=== PATIENT | female | born 2000 | race Caucasian/White ===

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

== ENCOUNTER 2023-12-12 13:38 | Outpatient (CLI) | payer SELFPAY ==
--- NOTE | 2023-12-12 13:46 | XRR_ITS ---
PROCEDURE INFORMATION: Exam: XR Sacrum and Coccyx, 2 or More Views Exam date and time: 12/12/2023 2:14 PM Age: 23 years old Clinical indication: Pain in coccyx area; Additional info: M53.3 - sacrococcygeal disorders, not elsewhere classified TECHNIQUE: Imaging protocol: XR of the sacrum and coccyx, 2 or more views. COMPARISON: CR XR lumbar spine 6V w f/e [id number] 12/12/2023 2:14 PM FINDINGS: Bones/joints: Sacrum and coccyx are grossly intact. No evidence of displaced fracture. Soft tissues: No gross soft tissue abnormality. XR/XR sacrum coccyx min 2V [id number] IMPRESSION: 1. Sacrum and coccyx are grossly intact. If there is ongoing clinical concern, consider correlation with CT.
--- NOTE | 2023-12-12 13:46 | XRR_ITS ---
PROCEDURE INFORMATION: Exam: XR Lumbosacral Spine Exam date and time: 12/12/2023 2:14 PM Age: 23 years old Clinical indication: Low back pain; Additional info: S32.009a - unspecified fracture of unspecified lumbar alexi. . . TECHNIQUE: Imaging protocol: Radiologic exam of the lumbosacral spine. Views: 6 or more views. Including flexion and extension views. COMPARISON: CR XR sacrum coccyx min 2V [id number] 12/12/2023 2:14 PM FINDINGS: Bones/joints: Chronic appearing L1 vertebral body compression fracture with mild height loss. The sacrum and coccyx are partially obscured by bowel gas/stool. Soft tissues: Grossly unremarkable. XR/XR lumbar spine 6V w f/e [id number] IMPRESSION: 1. Chronic appearing L1 vertebral body compression fracture with mild height loss. Consider correlation with CT or MRI for further detail, particularly if there is concern for recent trauma.
== END 2023-12-12 13:39 | disposition home or self-care (01) ==
LOC: RAD 13:41
PROVIDERS: Family Provider Nurse Practitioner Family; PCP Nurse Practitioner Family; Visit Provider Nurse Practitioner Family
DX: M53.3 Sacrococcygeal disorders, not elsewhere classified (principal); G89.29 Other chronic pain; S32.009A Unspecified fracture of unspecified lumbar vertebra, initial encounter for closed fracture; N92.6 Irregular menstruation, unspecified; R53.83 Other fatigue; R10.2 Pelvic and perineal pain; Z13.6 Encounter for screening for cardiovascular disorders; Z79.899 Other long term (current) drug therapy; S32.010A Wedge compression fracture of first lumbar vertebra, initial encounter for closed fracture
CPT/HCPCS: 72114; 72220; 80053; 80061; 81003; 82728; 83036; 83550; 84439; 84443; 85025; 87086

== ENCOUNTER 2023-12-13 14:29 | Emergency (ER) | payer SELFPAY ==
[2023-12-13 14:53] VITALS: BP 146/104; PULSE 88; RESP 16; TEMP 37.1; O2SAT 98
--- NOTE | 2023-12-13 15:04 | CTR_ITS ---
PROCEDURE INFORMATION: Exam: CT Abdomen And Pelvis With Contrast Exam date and time: 12/13/2023 4:00 PM Age: 23 years old Clinical indication: Abdominal pain; Localized; Right lower quadrant (rlq); Additional info: Rlq pain TECHNIQUE: Imaging protocol: Computed tomography of the abdomen and pelvis with contrast. Axial, coronal and sagittal reformatted images were created and reviewed. Radiation optimization: All CT scans at this facility use at least one of these dose optimization techniques: automated exposure control; mA and/or kV adjustment per patient size (includes targeted exams where dose is matched to clinical indication); or iterative reconstruction. Contrast material: OMNI 350; Contrast volume: 100 ml; Contrast route: INTRAVENOUS (IV); COMPARISON: CT abdomen pelvis w con* [id number] 11/11/2017 11:53 PM RADIATION DOSE METRICS: Total DLP (mGy-cm): 790.18 FINDINGS: Liver: Unremarkable. Gallbladder and biliary ducts: No radiodense gallstones. No biliary ductal dilatation. Pancreas: Unremarkable. Spleen: Unremarkable. Adrenal glands: Normal. No mass. Kidneys and ureters: No mass. No radiodense calculi. No hydronephrosis. Stomach and bowel: Moderate amount of retained stool in the colon. No obstruction. No bowel wall thickening. No pneumatosis. Appendix: Normal. Intraperitoneal space: Trace nonspecific free pelvic fluid, likely physiologic. No organized fluid collection. No free air. Vasculature: Unremarkable. No aneurysm. Lymph nodes: Small mesenteric lymph nodes, nonspecific in appearance. No pathologically enlarged lymph nodes. Urinary bladder: Unremarkable as visualized. Reproductive: 4.6 x 4 cm left adnexal cystic lesion, likely a follicular cyst. Bones/joints: No acute osseous abnormality. Chronic partial L1 superior endplate compression deformity. Soft tissues: Unremarkable. CT/CT abdomen pelvis w con* [id number] IMPRESSION: 1. 4.6 x 4 cm left adnexal cystic lesion, likely a follicular cyst. 2. Additional findings, as above.
--- NOTE | 2023-12-13 15:05 | W.ED.ABDPA2 ---
HPI - Abdominal Pain General: Chief Complaint: Abdominal Pain Stated Complaint: abd pain Time Seen by Provider: 12/13/23 14:53 Source: patient Mode of arrival: ambulatory Limitations: no limitations History of Present Illness: 23-year-old female states she has been having lower abdominal pain she states over the last 4 days states it is a cramping pain at first but today her pain is worsened and is in her right lower quadrant she states her pain is a 8 out of 10. She had some nausea denies any vomiting denies any fevers denies any worsening improving factors. Associated Symptoms: Denies chills, diarrhea, fever(s), nausea and vomiting Review of Systems Const: Denies: fever(s), chills, body aches or change in appetite ENMT: Denies: throat pain or dental pain Card: Denies: chest pain Resp: Denies: dyspnea GI: Reports: abdominal pain; Denies: nausea, vomiting or diarrhea Musc: Denies: neck pain or back pain Skin/Breast: Denies: rash Neuro: Denies: headache(s) PFSH ED PFSH: Medical History Fracture of lumbar spine Ovarian cyst Coccygeal pain, chronic Medication management Encounter for screening for cardiovascular disorders Pelvic pain Fatigue Menstrual irregularity Social History Smoking and tobacco/nicotine status: never used tobacco/nicotine Alcohol intake: current Alcohol intake frequency: holidays/special occasions only Substance/Drug Use: never Physical Exam Const: COMMON NORMALS: no acute distress, patient oriented x3 and healthy appearing HENMT: COMMON NORMALS: normocephalic and atraumatic HEAD & SCALP: normocephalic and atraumatic Neck/C-Spine: COMMON NORMALS: full ROM and supple Chest: COMMONS NORMALS: normal inspection of the chest Resp: COMMON NORMALS: normal respiratory effort Cardio: COMMON NORMALS: regular rate, regular rhythm and No murmurs present (Cardio) RATE: regular rate RHYTHM: regular rhythm GI: COMMON NORMALS: Normal to inspection, nondistended, normoactive bowel sounds present, Soft to palpation and no masses PALPATION: Yes Soft to palpation and Yes Tenderness to palpation present (GI) Details: RLQ Extremity: COMMON NORMALS: normal to inspection and full ROM Neuro: COMMON NORMALS: patient oriented x3, moves all extremities and no focal motor deficits Psych: COMMON NORMALS: mental status grossly normal, Normal thought process present and cooperative THOUGHT PROCESS: Normal thought process present Skin: COMMON NORMALS: no rashes or lesions noted and no wounds GENERAL SKIN EXAM: no rashes or lesions noted Course Vital Signs: Vital signs: Vital Signs Temperature 98.8 F 12/13/23 14:53 Pulse Rate 78 12/13/23 15:21 Respiratory Rate 16 12/13/23 15:21 Blood Pressure 134/84 12/13/23 15:21 Pulse Oximetry 100 12/13/23 15:21 Oxygen Delivery Me thod Room Air 12/13/23 15:21 MDM - Abdominal Pain Medical Decision Making Patient presents here with abdominal pain CT showed no signs appendicitis she is feeling improved here blood works normal no signs of acute surgical abdomen she stable for discharge she is follow-up with PCP return if worsening she understands agrees to plan Medical Records I reviewed the patient's medical records. Lab Data I reviewed the patient's lab results. 12/13/23 15:06 12/13/23 15:06 Labs/Radiology: Radiology Impressions Abdomen/Pelvis CT 12/13/23 15:04 IMPRESSION: 1. 4.6 x 4 cm left adnexal cystic lesion, likely a follicular cyst. 2. Additional findings, as above. Laboratory Results WBC 6.25 10^3/uL (3.29-11.43) 12/13/23 15:06 RBC 4.73 10^6/uL (3.85-5.65) 12/13/23 15:06 Hgb 14.80 g/dL (11.27-16.99) 12/13/23 15:06 Hct 43.7 % (36-47) 12/13/23 15:06 MCV 92.4 fl (85-98) 12/13/23 15:06 MCH 31.3 pg (27-33) 12/13/23 15:06 MCHC 33.9 g/dL (30-55) 12/13/23 15:06 RDW 11.9 % (12.1-15.1) L 12/13/23 15:06 Plt Count 215 10^3/cmm (157-399) 12/13/23 15:06 MPV 10.3 fL (7.4-10.4) 12/13/23 15:06 Neut % (Auto) 64.3 % 12/13/23 15:06 Lymph % (Auto) 25.3 % 12/13/23 15:06 [place] % (Auto) 7.8 % 12/13/23 15:06 Eos % (Auto) 1.9 % 12/13/23 15:06 Baso % (Auto) 0.5 % 12/13/23 15:06 Neut # (Auto) 4.02 10^3/uL (1.8-7.7) 12/13/23 15:06 Lymph # (Auto) 1.6 10^3/uL (0.8-4.8) 12/13/23 15:06 [place] # (Auto) 0.5 10^3/uL (0.2-0.9) 12/13/23 15:06 Eos # (Auto) 0.1 10^3/uL (0.0-0.8) 12/13/23 15:06 Baso # (Auto) 0.0 10^3/uL (0.0-0.1) 12/13/23 15:06 Nucleated RBC % (auto) 0 % 12/13/23 15:06 Nucleated RBCs # 0.0 /100WBC 12/13/23 15:06 Sodium 137 mmol/L (136-145) 12/13/23 15:06 Potassium 3.9 mmol/L (3.5-5.1) 12/13/23 15:06 Chloride 100 mmol/L (98-107) 12/13/23 15:06 Carbon Dioxide 23 mmol/L (22-29) 12/13/23 15:06 Anion Gap 17.9 (5-19) 12/13/23 15:06 BUN 11 mg/dL (6-20) 12/13/23 15:06 Creatinine 0.6 mg/dL (0.5-0.9) 12/13/23 15:06 GFR Calculation 123.9 mL/min (90-130) 12/13/23 15:06 Glucose 90 mg/dL (65-115) 12/13/23 15:06 Calculated Osmolality 283 mOsm/kg (285-295) L 12/13/23 15:06 Calcium 9.5 mg/dL (8.5-10.5) 12/13/23 15:06 Total Bilirubin 0.4 mg/dL (0.15-1.2) 12/13/23 15:06 AST 21 U/L (0-32) 12/13/23 15:06 ALT 27 U/L (0-33) 12/13/23 15:06 Alkaline Phosphatase 59 U/L (35-105) 12/13/23 15:06 Total Protein 7.8 g/dL (6.6-8.7) 12/13/23 15:06 Albumin 4.4 g/dL (3.5-5.2) 12/13/23 15:06 Globulin 3.4 g/dL (1.3-4.6) 12/13/23 15:06 Lipase 15 U/L (13-60) 12/13/23 15:06 HCG, Qual Negative (Negative) 12/13/23 15:06 Urine Color Yellow (Yellow) 12/13/23 15:22 Urine Appearance Slightly cloudy (CLEAR) 12/13/23 15:22 Urine pH 6.5 (5-7) 12/13/23 15:22 Ur Specific [place] 1.015 (1.005-1.030) 12/13/23 15:22 Urine Protein Neg (Negative) 12/13/23 15:22 Urine Glucose (UA) Norm (Normal) 12/13/23 15:22 Urine Ketones Negative (Negative) 12/13/23 15:22 Urine Blood Neg (Negative) 12/13/23 15:22 Urine Nitrate Negative (Negative) 12/13/23 15:22 Urine Bilirubin Neg (Negative) 12/13/23 15:22 Urine Urobilinogen Norm mg/dL (Negative) 12/13/23 15:22 Ur Leukocyte Esterase 2+ (Negative) H 12/13/23 15:22 Urine RBC 0-4 /hpf (0-2) H 12/13/23 15:22 Urine WBC 15-25 /hpf (0-5) H 12/13/23 15:22 Ur Squamous Epith Cells 10-15 /hpf (0-5) H 12/13/23 15:22 Amorphous Sediment Not Reportable 12/13/23 15:22 Urine Bacteria 2+ /hpf (NONE) H 12/13/23 15:22 Urine Mucus Trace /hpf 12/13/23 15:22 All radiology interpretation(s) finalized by discharge Discharge Plan Discharge Patient Disposition: Home Clinical Impression: Abdominal pain Condition: Stable Discharge Orders: Discharge ED (Routine); Ordered 12/13/23 Ordered By: Dary Bernardo Referrals: MILENA Yi, [employer] [Primary Care Provider] - 4-7 days Discharge Diet: Advance as tolerated Discharge Activity: Resume usual activity Patient Instructions: Abdominal Pain (ED) Coding Level of Care Code ED Hospice Case Manager for Zaina Rocha
[2023-12-13] MEDS: sodium chloride 0.9% 1,000 ML 999 ML IV (15:15)
[2023-12-13 15:17] VITALS: RESP 16
[2023-12-13] MEDS: ondansetron 2 mg/ML SDV 2 mL 4 MG IVP (15:17)
[2023-12-13] MEDS: morphine 4 mg/mL SDV 1 mL IVP (15:17)
[2023-12-13 15:21] VITALS: BP 134/84; PULSE 78; RESP 16; O2SAT 100
[2023-12-13 15:21] LABS: Basophils % 0.5 %; Eosinophils # 0.1 10^3/uL (0.0-0.8); Eosinophils % 1.9 %; Hematocrit 43.7 % (36-47); Lymphocytes # 1.6 10^3/uL (0.8-4.8); Lymphocytes % 25.3 %; Mean Corpuscular HGB Conc 33.9 g/dL (30-55); Mean Corpuscular Hemoglobin 31.3 pg (27-33); Mean Corpuscular Volume 92.4 fl (85-98); Mean Platelet Volume 10.3 fL (7.4-10.4); Monocytes # 0.5 10^3/uL (0.2-0.9); Monocytes % 7.8 %; Neutrophils # 4.02 10^3/uL (1.8-7.7); Neutrophils % 64.3 %; Nucleated Red Blood Cells % 0 %; Platelet Count 215 10^3/cmm (157-399); Red Blood Count 4.73 10^6/uL (3.85-5.65); Red Cell Distribution Width 11.9 % (12.1-15.1); White Blood Count 6.25 10^3/uL (3.29-11.43)
[2023-12-13 15:36] LABS: Alanine Aminotransferase 27 U/L (0-33); Albumin Level 4.4 g/dL (3.5-5.2); Alkaline Phosphatase 59 U/L (35-105); Anion Gap 17.9 (5-19); Aspartate Amino Transferase 21 U/L (0-32); Blood Urea Nitrogen 11 mg/dL (6-20); Calcium 9.5 mg/dL (8.5-10.5); Carbon Dioxide 23 mmol/L (22-29); Chloride 100 mmol/L (98-107); Creatinine Clr Calc Pharmacy 152.8261; Globulin 3.4 g/dL (1.3-4.6); Glomerular Filtration Rate 123.9 mL/min (90-130); Glucose 90 mg/dL (65-115); Lipase 15 U/L (13-60); Osmolality Calculated 283 mOsm/kg (285-295); Potassium 3.9 mmol/L (3.5-5.1); Sodium 137 mmol/L (136-145); Total Bilirubin 0.4 mg/dL (0.15-1.2); Total Protein 7.8 g/dL (6.6-8.7)
[2023-12-13 15:42] LABS: HCG, Serum Qual Negative (Negative)
[2023-12-13 15:48] LABS: Add Urine Microscopic? YES; Bilirubin Urine Neg (Negative); Blood Urine Neg (Negative); Glucose Urine UA Norm (Normal); Ketones Urine Negative (Negative); Leukocyte Esterase Urine 2+ (Negative); Nitrate Urine Negative (Negative); Protein Urine Neg (Negative); Specific Gravity, Urine 1.015 (1.005-1.030); Urine Appearance Slightly Cloudy (CLEAR); Urine Color Yellow (Yellow); Urobilinogen Urine Norm (Negative); pH Urine 6.5 (5-7)
[2023-12-13 15:57] LABS: Add Urine Culture? Yes; Bacteria Urine 2+ /hpf; Mucus Urine TRACE /hpf; RBC Urine 0-4 /hpf (0-2); WBC Urine 15-25 /hpf (0-5)
[2023-12-13] MEDS: iohexol 350 mg/mL 500 mL Btl (per mL) IV (16:02)
[2023-12-13 17:13] VITALS: BP 124/94; PULSE 81; RESP 16; O2SAT 95
== END 2023-12-13 17:19 | disposition home or self-care (01) ==
PROVIDERS: Emergency Provider Emergency Medicine; PCP Nurse Practitioner Family
DX: R10.30 Lower abdominal pain, unspecified (principal)
CPT/HCPCS: 74177; 80053; 81001; 83690; 84703; 85025; 87086; 96361; 96374; 96375; 99285; J2270; J2405; J7030; Q9967

== ENCOUNTER 2023-12-21 06:30 | Outpatient (CLI) | payer SELFPAY ==
--- NOTE | 2023-12-21 06:30 | US_ITS ---
WS: [id number] US transvaginal [id number] HISTORY: R10.2 - Pelvic and perineal pain COMPARISON: None available. Uterus: 6.3 cm x 4.9 cm x 3.2 cm. Normal size anteverted uterus. No fibroid or mass. Endometrium: 0.5 cm. Right ovary: 2.7 cm x 2.8 cm x 1.9 cm. Normal size and vascularity, no cystic or solid masses. Small peripheral follicles. Left ovary: 2.5 cm x 2.1 cm x 2.4 cm. Normal size and vascularity, no cystic or solid masses. Small p eripheral follicles. Previously described cyst within the LEFT adnexa is not present today. No free fluid in the cul-de-sac. US/US transvaginal [id number] IMPRESSION: Normal transvaginal pelvic ultrasound. Interval resolution of the LEFT ovarian cyst since 12/13/2023.
== END 2023-12-21 06:31 | disposition home or self-care (01) ==
PROVIDERS: PCP Nurse Practitioner Family; Visit Provider Nurse Practitioner Family
DX: R10.2 Pelvic and perineal pain (principal); N83.209 Unspecified ovarian cyst, unspecified side
CPT/HCPCS: 76830

== ENCOUNTER → 2023-12-22 11:41 | Outpatient (BNVA) | payer SELFPAY | PROVIDERS: PCP Nurse Practitioner Family; Visit Provider Nurse Practitioner Family | DX: R11.0 Nausea (principal); R53.83 Other fatigue | CPT/HCPCS: 86003; 86008; 86038; 86160; 86618; 86666; 86668; 86757 ==

== ENCOUNTER 2024-09-18 07:59 | Outpatient (CLI) | payer BC, MEDICAID, SELFPAY ==
[2024-09-18 08:42] LABS: Basophils # 0.1 10^3/uL (0.0-0.1); Basophils % 0.9 %; Eosinophils # 0.3 10^3/uL (0.0-0.8); Eosinophils % 5.6 %; Hematocrit 38.4 % (36-47); Mean Corpuscular HGB Conc 33.3 g/dL (30-55); Mean Platelet Volume 10.3 fL (7.4-10.4); Monocytes # 0.5 10^3/uL (0.2-0.9); Monocytes % 8.4 %; Neutrophils # 2.88 10^3/uL (1.8-7.7); Neutrophils % 50.1 %; Nucleated Red Blood Cells % 0 %; Platelet Count 214 10^3/cmm (157-399); Red Blood Count 4.13 10^6/uL (3.85-5.65); Red Cell Distribution Width 12.5 % (12.1-15.1); White Blood Count 5.74 10^3/uL (3.29-11.43)
[2024-09-18 08:48] LABS: Bilirubin Urine Negative (Negative); Blood Urine Negative (Negative); Glucose Urine UA Negative (Normal); Ketones Urine Negative (Negative); Leukocyte Esterase Urine 1+ (Negative); Nitrate Urine Negative (Negative); Protein Urine Negative (Negative); Specific Gravity, Urine 1.017 (1.005-1.030); Urine Appearance Clear (CLEAR); Urine Color Yellow (Yellow); Urobilinogen Urine 0.2 mg/dL (Negative)
[2024-09-18 08:53] LABS: Bacteria Urine Trace /hpf; Hyaline Casts Urine 0-4 /lpf; RBC Urine 0-2 /hpf (0-2)
[2024-09-18 09:09] LABS: Alanine Aminotransferase 9 U/L (0-33); Albumin Level 4.4 g/dL (3.5-5.2); Alkaline Phosphatase 66 U/L (35-105); Anion Gap 14.9 (5-19); Aspartate Amino Transferase 14 U/L (0-32); Blood Urea Nitrogen 10 mg/dL (6-20); Calcium 8.8 mg/dL (8.5-10.5); Carbon Dioxide 25 mmol/L (22-29); Chloride 105 mmol/L (98-107); Chol HDL Ratio 2.59 mg/dL (0.0-4.40); Cholesterol 184 mg/dL (0-200); Cortisol Random 19.83 ug/dL (2.47-19.5); Free T4 Free Thyroxine 1.11 ng/dL (0.82-1.77); Globulin 2.7 g/dL (1.3-4.6); Glomerular Filtration Rate 152.9 mL/min (90-130); Glucose 68 mg/dL (65-115); HDL Cholesterol 71 mg/dL (60-100); LDL Cholesterol Calculated 102 mg/dL (50-129); LDL HDL Ratio 1.44 RATIO (0.00-3.22); Osmolality Calculated 289 mOsm/kg (285-295); Potassium 3.9 mmol/L (3.5-5.1); Sodium 141 mmol/L (136-145); Thyroid Stimulating Hormone 10.72 uIU/mL (0.27-4.20); Total Bilirubin 0.2 mg/dL (0.15-1.2); Total Protein 7.1 g/dL (6.6-8.7); Triglycerides 53 mg/dL (0-150)
[2024-09-18 09:11] LABS: Estmated Average Glucose 91; Hemoglobin A1C 4.8 % (4.0-6.0)
[2024-09-18 09:48] LABS: 25 Hydroxy Vitamin D 32 ng/mL (30-100); Follicle Stimulating Hormone 6.6 mIU/mL; Luteinizing Hormone 12.1 mIU/mL (0.5-41.7); Prolactin 80.81 ng/mL (4.8-23.3)
[2024-09-19 07:25] LABS: Dehydroepiandrosterone Sulfate 287 mcg/dL (14-349)
== END 2024-09-18 08:00 | disposition home or self-care (01) ==
PROVIDERS: PCP Nurse Practitioner Family; Visit Provider Nurse Practitioner Family
DX: E28.2 Polycystic ovarian syndrome (principal); N92.6 Irregular menstruation, unspecified; E03.9 Hypothyroidism, unspecified
CPT/HCPCS: 36415; 80053; 80061; 81001; 82040; 82306; 82533; 82627; 82672; 83001; 83002; 83036; 84144; 84146; 84270; 84403; 84439; 84443; 85025

== ENCOUNTER 2024-10-19 14:46 | Emergency (ER) | payer BC, MEDICAID, SELFPAY ==
[2024-10-19 14:50] VITALS: BP 127/89; PULSE 70; RESP 16; TEMP 36.8; O2SAT 100; BMI 34.3
--- NOTE | 2024-10-19 15:18 | ED_ITS ---
HPI - Allergic Reaction 2 General: Chief complaint: Allergic Reaction Stated complaint: some kind of reaction Time Seen by Provider: 10/19/24 15:02 Source: patient Mode of arrival: ambulatory Limitations: no limitations History of Present Illness: HPI narrative: 23-year-old female who states she has a history of hypothyroidism states that over this last week she has been feeling lethargic she had some nausea and general malaise. And she is also had some numbness in her fingers states yesterday when she was working she felt like her ankles were swollen. She denies any fevers or chest pain Associated symptoms: Deny abdominal pain, nausea or vomiting Related Data Home Medications ?Medication ?Instructions ?Recorded ?Confirmed cholecalciferol (vitamin D3) 125 125 mcg PO DAILY 09/2810/19/24 mcg (5,000 unit) tablet (Vitamin D3) Previous Rx's ?Medication ?Instructions ?Recorded magnesium oxide 400 mg (241.3 mg See Rx Instructions P O .COMPLEX 04/02/24 magnesium) tablet #60 tabs sumatriptan succinate 50 mg tablet See Rx Instructions PO .COMPLEX 04/02/24 #10 tabs citalopram 10 mg tablet 10 mg PO DAILY #90 tabs 07/28 09/21 citalopram 20 mg tablet See Rx Instructions .Route 0 10/15/24 .COMPLEX #30 tabs levothyroxine 50 mcg tablet See Rx Instructions PO ION LY #45 10/19/24 (Levoxyl) tabs Allergies Allergy/AdvReac Type Severity Reaction Status Date / Time ethinyl estradiol (From Allergy ADR-Dizzine Verified 10/01/24 10:22 [place] (28)) ss levonorgestrel (From [place] Allergy ADR-Dizzine Verified 10/01/24 10:22 (28)) ss Review of Systems 2 Const: Reports: malaise; Denies: fever(s), chills, body aches or change in appetite ENMT: Denies: throat pain or dental pain Card: Denies: chest pain Resp: Denies: dyspnea GI: Denies: abdominal pain, nausea, vomiting or diarrhea Musc: Denies: neck pain or back pain Skin/Breast: Denies: rash Neuro: Denies: headache(s) PFSH ED 2 PFSH: Medical History Psychiatric care Elevated prolactin level PCOS (polycystic ovarian syndrome) Migraine Anxiety and depression Joint pain Positive RADHA (antinuclear antibody) Allergy to alpha-gal Oral contraceptive use Rectal pressure Hypothyroid Nausea Fracture of lumbar spine Ovarian cyst Coccygeal pain, chronic Medication management Encounter for screening for cardiovascular disorders Pelvic pain Fatigue Menstrual irregularity Social History Smoking and tobacco/nicotine status: never used tobacco/nicotine Alcohol intake: current Alcohol intake frequency: holidays/special occasions only Substance/Drug Use: never Female Reproductive History: Date of last menstrual period: 10/19/24 Physical Exam 2 Const: COMMON NORMALS: no acute distress, patient oriented x3 and healthy appearing HENMT: COMMON NORMALS: normocephalic and atraumatic HEAD & SCALP: n ormocephalic and atraumatic Eye: COMMON NORMALS: conjunctivae normal CONJUNCTIVA: Yes conjunctivae normal Neck/C-Spine: COMMON NORMALS: full ROM and supple Chest: COMMONS NORMALS: normal inspection of the chest Resp: COMMON NORMALS: normal respiratory effort, No retractions, No use of accessory muscles and clear to auscultation bilaterally AUSCULTATION: clear to auscultation bilaterally Cardio: COMMON NORMALS: regular rate, regular rhythm and No murmurs present (Cardio) RATE: regular rate RHYTHM: regular rhythm Extremity: COMMON NORMALS: normal to inspection and full ROM Neuro: COMMON NORMALS: patient oriented x3, moves all extremities and no focal motor deficits Psych: COMMON NORMALS: mental status grossly normal, Normal thought process present and cooperative THOUGHT PROCESS: Normal thought process present Skin: COMMON NORMALS: no rashes or lesions noted and no wounds GENERAL SKIN EXAM: no rashes or lesions noted Course 2 Vital Signs: Vital signs: Vital Signs Temperature 98.3 F 10/19/24 14:50 Pulse Rate 70 10/19/24 14:50 Respiratory Rate 16 10/19/24 14:50 Blood Pressure 127/89 10/19/24 14:50 Pulse Oximetry 100 10/19/24 14:50 Oxygen Delivery Me thod Room Air 10/19/24 14:50 MDM - Allergic Reaction Medical Decision Making Patient presents here with generalized weakness she has been well-appearing here vitals are normal blood works normal she is to follow back up with her private tutor return if worsening. Medical Records I reviewed the patient's medical records. Lab Data I reviewed the patient's lab results. 10/19/24 15:20 10/19/24 15:20 Laboratory Results WBC 6.52 10^3/uL (3.29-11.43) 10/19/24 15:20 RBC 4.25 10^6/uL (3.85-5.65) 10/19/24 15:20 Hgb 13.20 g/dL (11.27-16.99) 10/19/24 15:20 Hct 39.3 % (36-47) 10/19/24 15:20 MCV 92.5 fl (85-98) 10/19/24 15:20 MCH 31.1 pg (27-33) 10/19/24 15:20 MCHC 33.6 g/dL (30-55) 10/19/24 15:20 RDW 12.4 % (12.1-15.1) 10/19/24 15:20 Plt Count 229 10^3/cmm (157-399) 10/19/24 15:20 MPV 10.3 fL (7.4-10.4) 10/19/24 15:20 Neut % (Auto) 63.4 % 10/19/24 15:20 Lymph % (Auto) 25.5 % 10/19/24 15:20 [place] % (Auto) 6.4 % 10/19/24 15:20 Eos % (Auto) 3.7 % 10/19/24 15:20 Baso % (Auto) 0.8 % 10/19/24 15:20 Neut # (Auto) 4.14 10^3/uL (1.8-7.7) 10/19/24 15:20 Lymph # (Auto) 1.7 10^3/uL (0.8-4.8) 10/19/24 15:20 [place] # (Auto) 0.4 10^3/uL (0.2-0.9) 10/19/24 15:20 Eos # (Auto) 0.2 10^3/uL (0.0-0.8) 10/19/24 15:20 Baso # (Auto) 0.1 10^3/uL (0.0-0.1) 10/19/24 15:20 Nucleated RBC % (auto) 0 % 10/19/24 15:20 Nucleated RBCs # 0.0 /100WBC 10/19/24 15:20 Sodium 138 mmol/L (136-145) 10/19/24 15:20 Potassium 3.8 mmol/L (3.5-5.1) 10/19/24 15:20 Chloride 103 mmol/L (98-107) 10/19/24 15:20 Carbon Dioxide 22 mmol/L (22-29) 10/19/24 15:20 Anion Gap 16.8 (5-19) 10/19/24 15:20 BUN 9 mg/dL (6-20) 10/19/24 15:20 Creatinine 0.5 mg/dL (0.5-0.9) 10/19/24 15:20 GFR Calculation 152.9 mL/min (90-130) H 10/19/24 15:20 Glucose 82 mg/dL (65-115) 10/19/24 15:20 Calculated Osmolality 284 mOsm/kg (285-295) L 10/19/24 15:20 Calcium 9.1 mg/dL (8.5-10.5) 10/19/24 15:20 Total Bilirubin 0.3 mg/dL (0.15-1.2) 10/19/24 15:20 AST 13 U/L (0-32) 10/19/24 15:20 ALT 8 U/L (0-33) 10/19/24 15:20 Alkaline Phosphatase 57 U/L (35-105) 10/19/24 15:20 Total Protein 7.4 g/dL (6.6-8.7) 10/19/24 15:20 Albumin 4.3 g/dL (3.5-5.2) 10/19/24 15:20 Globulin 3.1 g/dL (1.3-4.6) 10/19/24 15:20 TSH 2.59 uIU/mL (0.27-4.20) 10/19/24 15:20 HCG, Qual Negative (Negative) 10/19/24 15:20 Urine Color Yellow (Yellow) 10/19/24 16:02 Urine Appearance Clear (CLEAR) 10/19/24 16:02 Urine pH 6.5 (5-7) 10/19/24 16:02 Ur Specific [place] 1.002 (1.005-1.030) L 10/19/24 16:02 Urine Protein Negative (Negative) 10/19/24 16:02 Urine Glucose (UA) Negative (Normal) 10/19/24 16:02 Urine Ketones Negative (Negative) 10/19/24 16:02 Urine Blood Negative (Negative) 10/19/24 16:02 Urine Nitrate Negative (Negative) 10/19/24 16:02 Urine Bilirubin Negative (Negative) 10/19/24 16:02 Urine Urobilinogen 0.2 mg/dL (Negative) 10/19/24 16:02 Ur Leukocyte Esterase 1+ (Negative) A 10/19/24 16:02 Urine RBC 0-2 /hpf (0-2) 10/19/24 16:02 Urine WBC 6-10 /hpf (0-5) 10/19/24 16:02 Ur Squamous Epith Cells 0-5 /hpf (0-5) 10/19/24 16:02 Amorphous Sediment Not Reportable 10/19/24 16:02 Urine Bacteria None seen /hpf (NONE) 10/19/24 16:02 Hyaline Casts 0.81 /lpf 10/19/24 16:02 No radiology studies performed this visit Discharge Plan Discharge Patient Disposition: Home Clinical Impression: Fatigue Condition: Stable Prescriptions: No Action levothyroxine [Levoxyl] 50 mcg tablet See Rx Instructions PO DAILY Qty: 45 3RF Rx Instructions: take 1 tablet bu mouth Tuesday through Tuesday; Take 1 1/2 on Tuesday orally daily; magnesium oxide 400 mg (241.3 mg magnesium) tablet See Rx Instructions PO .COMPLEX Qty: 60 1RF Rx Instructions: 1 tab daily - can take Q4hrs with headache orally; sumatriptan succinate 50 mg tablet See Rx Instructions PO .COMPLEX Qty: 10 2RF Rx Instructions: take 1 tab at onset of headache; if no relief may repeat 1 tab after at least 2 hrs; max = 4 tabs/24 hr PO citalopram 10 mg tablet 10 mg PO DAILY Qty: 90 0RF Rx Instructions: take with 20 mg to equal 30 mg citalopram 20 mg tablet See Rx Instructions .ROUTE .COMPLEX Qty: 30 0RF Dose Instruction: TAKE 1 TABLET BY MOUTH DAILY. TAKE WITH 10MG TO EQUAL 30MG DAILY Rx Instructions: TAKE 1 TABLET BY MOUTH DAILY. TAKE WITH 10MG TO EQUAL 30MG DAILY cholecalciferol (vitamin D3) [Vitamin D3] 125 mcg (5,000 unit) Tablet 125 mcg PO DAILY Discharge Orders: Discharge ED (Routine); Ordered 10/19/24 Ordered By: Dary Bernardo Referrals: MILENA Yi, CVT TECH [Primary Care Provider, [facility]] Discharge Diet: Advance as tolerated Discharge Activity: Resume usual activity Patient Instructions: Weakness (ED) Print Language: Indonesian Coding Level of Care Code ED Holter Scanning Technician for Zaina Rocha
[2024-10-19 15:35] LABS: Basophils # 0.1 10^3/uL (0.0-0.1); Basophils % 0.8 %; Eosinophils # 0.2 10^3/uL (0.0-0.8); Eosinophils % 3.7 %; Hematocrit 39.3 % (36-47); Lymphocytes # 1.7 10^3/uL (0.8-4.8); Lymphocytes % 25.5 %; Mean Corpuscular HGB Conc 33.6 g/dL (30-55); Mean Corpuscular Hemoglobin 31.1 pg (27-33); Mean Corpuscular Volume 92.5 fl (85-98); Mean Platelet Volume 10.3 fL (7.4-10.4); Monocytes # 0.4 10^3/uL (0.2-0.9); Monocytes % 6.4 %; Neutrophils # 4.14 10^3/uL (1.8-7.7); Neutrophils % 63.4 %; Nucleated Red Blood Cells % 0 %; Platelet Count 229 10^3/cmm (157-399); Red Blood Count 4.25 10^6/uL (3.85-5.65); Red Cell Distribution Width 12.4 % (12.1-15.1); White Blood Count 6.52 10^3/uL (3.29-11.43)
[2024-10-19] MEDS: sodium chloride 0.9% 1,000 ML 999 ML IV (15:37)
[2024-10-19 15:52] LABS: HCG, Serum Qual Negative (Negative)
[2024-10-19 16:03] LABS: Alanine Aminotransferase 8 U/L (0-33); Albumin Level 4.3 g/dL (3.5-5.2); Alkaline Phosphatase 57 U/L (35-105); Anion Gap 16.8 (5-19); Aspartate Amino Transferase 13 U/L (0-32); Blood Urea Nitrogen 9 mg/dL (6-20); Calcium 9.1 mg/dL (8.5-10.5); Carbon Dioxide 22 mmol/L (22-29); Chloride 103 mmol/L (98-107); Creatinine Clr Calc Pharmacy 190.9086; Globulin 3.1 g/dL (1.3-4.6); Glomerular Filtration Rate 152.9 mL/min (90-130); Glucose 82 mg/dL (65-115); Osmolality Calculated 284 mOsm/kg (285-295); Potassium 3.8 mmol/L (3.5-5.1); Sodium 138 mmol/L (136-145); Thyroid Stimulating Hormone 2.59 uIU/mL (0.27-4.20); Total Bilirubin 0.3 mg/dL (0.15-1.2); Total Protein 7.4 g/dL (6.6-8.7)
[2024-10-19 16:14] LABS: Bilirubin Urine Negative (Negative); Blood Urine Negative (Negative); Glucose Urine UA Negative (Normal); Ketones Urine Negative (Negative); Leukocyte Esterase Urine 1+ (Negative); Nitrate Urine Negative (Negative); Protein Urine Negative (Negative); Specific Gravity, Urine 1.002 (1.005-1.030); Urine Appearance Clear (CLEAR); Urine Color Yellow (Yellow); Urobilinogen Urine 0.2 mg/dL (Negative); pH Urine 6.5 (5-7)
[2024-10-19 16:17] LABS: Add Urine Microscopic? YES; Bacteria Urine None Seen /hpf; Hyaline Casts Urine 0.81 /lpf; RBC Urine 0-2 /hpf (0-2); Squamous Epithelial Cell Urine 0-5 /hpf (0-5)
[2024-10-19 16:50] VITALS: BP 121/78; PULSE 75; O2SAT 100
[2024-10-19 17:11] VITALS: BP 121/78; PULSE 75; O2SAT 100
== END 2024-10-19 17:13 | disposition home or self-care (01) ==
PROVIDERS: Emergency Provider Emergency Medicine; PCP Nurse Practitioner Family
DX: E03.9 Hypothyroidism, unspecified (principal); R53.83 Other fatigue; Z79.890 Hormone replacement therapy
CPT/HCPCS: 36415; 80053; 81001; 84443; 84703; 85025; 96360; 96361; 99284; J7030

== ENCOUNTER 2024-11-27 11:11 | Outpatient (CLI) | payer BC, MEDICAID, SELFPAY ==
[2024-11-27 12:18] LABS: Thyroid Stimulating Hormone 8.93 uIU/mL (0.27-4.20)
[2024-11-27 13:32] LABS: Free T4 Free Thyroxine 0.97 ng/dL (0.82-1.77)
== END 2024-11-27 11:12 | disposition home or self-care (01) ==
PROVIDERS: Absent Provider Nurse Practitioner Women's Health; PCP Nurse Practitioner Family; Visit Provider Internal Medicine
DX: R79.89 Other specified abnormal findings of blood chemistry (principal); E03.9 Hypothyroidism, unspecified; E28.2 Polycystic ovarian syndrome
CPT/HCPCS: 36415; 84146; 84439; 84443

== ENCOUNTER 2025-01-30 13:39 | Outpatient (CLI) | payer BC, MEDICAID, SELFPAY ==
[2025-01-30 14:48] LABS: Free T4 Free Thyroxine 0.85 ng/dL (0.82-1.77); Thyroid Stimulating Hormone 8.29 uIU/mL (0.27-4.20)
== END 2025-01-30 13:40 | disposition home or self-care (01) ==
PROVIDERS: PCP Nurse Practitioner Family; Visit Provider Internal Medicine
DX: R79.89 Other specified abnormal findings of blood chemistry (principal); E03.9 Hypothyroidism, unspecified
CPT/HCPCS: 36415; 84439; 84443; 84480

== ENCOUNTER 2025-02-22 13:21 | Outpatient (CLI) | payer BC, MEDICAID, SELFPAY ==
--- NOTE | 2025-02-22 13:45 | MR_ITS ---
WS: [id number] MRI BRAIN WITHOUT CONTRAST HISTORY: G43.909 - Migraine, unspecified, not intractable, without... COMPARISON: None available. TECHNIQUE: Diffusion imaging, multiplanar T1, T2 and FLAIR imaging obtained. No evidence for acute infarct or hemorrhage. Bean-white matter differentiation is normal. No remote or acute infarcts are volume loss. Ventricles and extra-axial spaces are normal. No inferior displacement of cerebellar tonsils. The sella turcica and pituitary gland are unremarkable. Dural venous sinuses and hoh of Early demonstrate no abnormality on this unenhanced studies. Paranasal sinuses: Clear. Mastoid air cells: Normal. Calvarium and scalp: Intact. MR/MR head wo con* [id number] IMPRESSION: 1. Unremarkable noncontrast MRI brain.
== END 2025-02-22 13:22 | disposition home or self-care (01) ==
LOC: RAD 13:21
PROVIDERS: PCP Nurse Practitioner Family; Visit Provider Nurse Practitioner Family
DX: G43.909 Migraine, unspecified, not intractable, without status migrainosus (principal)
CPT/HCPCS: 70551

== ENCOUNTER 2025-04-01 12:48 | Outpatient (CLI) | payer BC, MEDICAID, SELFPAY ==
[2025-04-01 14:33] LABS: Free T4 Free Thyroxine 0.97 ng/dL (0.82-1.77); Thyroid Stimulating Hormone 7.50 uIU/mL (0.27-4.20)
== END 2025-04-01 12:49 | disposition home or self-care (01) ==
LOC: LAB 12:50
PROVIDERS: PCP Nurse Practitioner Family; Visit Provider Internal Medicine
DX: E03.9 Hypothyroidism, unspecified (principal)
CPT/HCPCS: 36415; 84439; 84443; 84480